=== PATIENT | female | born 1985 | race Two or more races ===

== ENCOUNTER 2016-07-15 10:45 | Observation (INO) | payer OTHER ==
[2016-07-15] MEDS ORDERED: GUAIFENESIN ER 600 MG TABLET.ER PO ONE (14:00)
[2016-07-15] MEDS ORDERED: ACETAMINOPHEN 500 MG TABLET PO ONE (14:30)
== END 2016-07-15 16:00 | disposition home or self-care (01) ==
LOC: 3 SO LND 10:45
PROVIDERS: ADMIT Obstetrics & Gynecology; ATTEND Obstetrics & Gynecology
DX: O26.899 Other specified pregnancy related conditions, unspecified trimester (principal); R10.9 Unspecified abdominal pain; R05 Cough; Z3A.00 Weeks of gestation of pregnancy not specified
CPT/HCPCS: G0378; G0379

== ENCOUNTER → 2019-08-07 | Outpatient (CLI) | payer MEDICAID ==
--- NOTE | 2019-08-07 16:56 | RAD ---
EXAM: Pelvic sonogram. HISTORY: Pain. TECHNIQUE: Transabdominal and transvaginal sonographic imaging of the pelvis performed. COMPARISON: None. FINDINGS: The uterus is retroverted and measures 8.2 x 6.1 x 5.3 cm. The endometrial stripe measures 12 abdomen thickness. There is a nabothian cyst within the cervix. The ovaries are normal in size and demonstrate normal blood flow. There is a 2.0 cm complex left ovarian cyst with internal debris or hemorrhage and peripheral blood flow. There is a small amount of left adnexal free fluid. There are multiple ovarian follicles. IMPRESSION: 1. 2.0 cm complex left ovarian cyst, possibly hemorrhagic in etiology. There is a small amount of adjacent left adnexal free fluid. 2. Retroverted uterus. 3. Nabothian cyst within the cervix. Electronically signed by: Carol Sarmiento MD (08/07/2019 4:53 PM) [facility] – [place]
== END | disposition home or self-care (01) ==
LOC: US 15:08
PROVIDERS: ATTEND Obstetrics & Gynecology
DX: N85.4 Malposition of uterus (principal); N83.292 Other ovarian cyst, left side
CPT/HCPCS: 76830; 76856

== ENCOUNTER 2021-04-26 09:13 | Emergency (ER) | payer MEDICAID ==
[~2021-04-26] VITALS: Ht 154.9 cm; Wt 53.1 kg
[2021-04-26 09:20] VITALS: BP 120/83
--- NOTE | 2021-04-26 09:39 | PHYS DOC ---
Past Medical History Past Surgical History: Tubal ligation Smoking Status: Never Smoker Alcohol Use: None General Adult EDM: Chief Complaint: PAIN ON URINATION HPI: HPI: Patient is a 35 year old female here with 1 day history of suprapubic discomfort and dysuria. She denies gross hematuria. She denies fevers, chills, nausea, vomiting, anorexia. She denies diarrhea constipation. She does report some mild left-sided low back pain. No flank pain. She denies any trauma or in jury. No lower extremity pain, numbness tingling or motor weakness. No incontinence reported. She reports that she feels like she has a urinary tract infection. LMP 3 days ago. She has had a previous tubal ligation, no other abdominal or pelvic surgeries reported. Review of Systems: Review of Systems: Constitutional: Denies fever or chills. [] HENT: Denies nasal congestion or sore throat. [] Respiratory: Denies cough or shortness of breath. [] Cardiovascular: Denies chest pain or edema. [] GI: Denies abdominal pain, nausea, vomiting, bloody stools or diarrhea. [] : She reports dysuria and suprapubic discomfort. Musculoskeletal: She reports mild left low back pain. Denies joint pain or swelling. Integument: Denies rash. [] Neurologic: Denies headache, focal weakness or sensory changes. [] Endocrine: Denies polyuria or polydipsia. [] ] Psychiatric: Denies depression or anxiety. [] Heart Score: C/O Chest Pain: No Risk Factors: Risk Factors: DM, Current or recent (<one month) smoker, HTN, HLP, family history of CAD, obesity. Risk Scores: Score 0 - 3: 2.5% MACE over next 6 weeks - Discharge Home Score 4 - 6: 20.3% MACE over next 6 weeks - Admit for Clinical Observation Score 7 - 10: 72.7% MACE over next 6 weeks - Early Invasive Strategies Allergies: Allergies: Allergies Coded Allergies Type Severity Reaction Last Updated Verified No Known Drug Allergies 04/26/21 No Physical Exam: PE: Constitutional: Well developed, well nourished, no acute distress, non-toxic appearance. [] HENT: Normocephalic, atraumatic Eyes: Sclera are clear and anicteric. Neck: Trachea is midline. Cardiovascular: Regular rate and rhythm, +2 radial and posterior tibial pulses bilaterally, well-perfused appearing, no edema. Lungs & Thorax: Bilateral breath sounds clear to auscultation, no rales, rhonchi or wheezes. Abdomen: Abdomen is soft, nondistended, no tenderness, no masses, no pulsatile masses. No organomegaly. No CVA tenderness. Normal bowel sounds. Skin: Warm, dry, no erythema, no rash. [] Back: No tenderness, no CVA tenderness. No midline tenderness or step-offs. Full range of motion of the spine noted. Extremities: No tenderness, no cyanosis, no clubbing, ROM intact, no edema. No calf tenderness. Neurologic: Alert and oriented X 3, normal motor function, gait is steady. Speech is fluent. Psychologic: Affect normal, judgement normal, mood normal. [] Current Patient Data: Vital Signs: Vital Signs Date Time Temp Pulse Resp B/P (MAP) Pulse Ox O2 Delivery O2 Flow Rate FiO2 04/26/21 09:20 98.0 99 14 120/83 (95) 100 Room Air 98.0 EKG: EKG: [] Radiology/Procedures: Radiology/Procedures: [] Course & Med Decision Making: Course & Med Decision Making Pertinent Labs and Imaging studies reviewed. (See chart for details) I discussed the findings, differential diagnosis and plan of care with the patient. She is given a first dose of p.o. Pyridium as well as p.o. Macrobid here. I explained that her urine culture is pending, and she should be notified of any need to change antibiotics based on this. Findings are most consistent with acute cystitis. No current indication for further invasive exams, labs or imaging at this time. I discussed home care instructions. I told her to follow-up with her primary care physician to ensure resolution of infection. She is comfortable with the plan of care. Strict return precautions are given. Dragon Disclaimer: Yon Disclaimer: This electronic medical record was generated, in whole or in part, using a voice recognition dictation system. Departure Departure Impression: Primary Impression: Acute cystitis Qualified Codes: N30.01 - Acute cystitis with hematuria Disposition: HOME / SELF CARE / HOMELESS Condition: STABLE Referrals: ERICA SERRANO MD (PCP) Patient Instructions: Urinary Tract Infection Additional Instructions: Take the full course of antibiotics. Use the Pyridium for urinary pain, use only for 2 days and then stop. Make sure you take medications with food to avoid stomach upset. Return to the ER immediately for fever of 100.4 or higher, severe abdominal pain, uncontrolled vomiting, dehydration or any other concerns. Please follow-up with your primary care physician to ensure resolution of your infection. Your urine culture is pending, and if there is any need to change your antibiotics based on this culture, you should be notified of this. Scripts Phenazopyridine Hcl (PYRIDIUM) 200 Mg Tablet 1 TAB PO TID for urinary discomfort for 2 Days, #6 TAB 0 Refills Prov: AIMEE NAJERA DO 04/26/21 Nitrofurantoin Monohyd/M-Cryst (MACROBID 100 MG CAPSULE) 100 Mg Capsule 1 CAP PO BID for 7 Days, #14 CAP 0 Refills Prov: AIMEE NAJERA DO 04/26/21 AIMEE NAJERA DO Apr 26, 2021 09:39
[2021-04-26 09:40] LABS: BILIRUBIN,URINE SMALL (NEG); CLARITY,URINE CLEAR; COLOR,URINE AMBER; NITRITE,URINE POSITIVE (NEG); PH,URINE 5.5 (<5.0-8.0); PROTEIN,URINE NEGATIVE (NEG-TRACE)
[2021-04-26 09:50] LABS: BACTERIA,URINE MODERATE /HPF (0-FEW); WBC,URINE 20-40 /HPF (0-4)
[2021-04-26 09:56] LABS: U PREG PATIENT NEGATIVE (NEG)
[2021-04-26] MEDS ORDERED: NITROFURANTOIN MONOHYD/M-CRYST 100 MG CAPSULE. PO ONE (10:00)
[2021-04-26] MEDS ORDERED: NITR100C62 PO (10:00)
[2021-04-26] MEDS ORDERED: PHENAZOPYRIDINE 200 MG TABLET. PO ONE (10:00)
[2021-04-26] MEDS ORDERED: PHEN-318 PO (10:00)
== END 2021-04-26 10:14 | disposition home or self-care (01) ==
LOC: ER 09:13
DX: N30.01 Acute cystitis with hematuria (principal); Z98.51 Tubal ligation status
CPT/HCPCS: 81001; 81025; 87086; 99283

== ENCOUNTER → 2021-05-10 | Outpatient (CLI) | payer MEDICAID ==
[2021-04-26 09:20] VITALS: BP 120/83
[~2021-05-10] MED LIST: NITR100C62 PO; PHEN-318 PO
--- NOTE | 2021-05-10 12:10 | RAD ---
EXAMINATION: CT ABDOMEN W/O CONTRAST CLINICAL HISTORY: Right upper quadrant abdominal pain. History of tubal ligation TECHNIQUE: Imaging of the abdomen was performed without intravenous contrast using standard technique , scanning from just above the dome of the diaphragm to the iliac crests. Unenhanced imaging is limi pascual for the evaluation of some intra-abdominal and pelvic pathology. CT Dose Reduction Employed: One or more of the following individualized dose reduction techniques wer e utilized for this examination: 1. Automated exposure control 2. Adjustment of the mA and/or kV ac cording to patient size 3. Use of iterative reconstruction technique. COMPARISON: None FINDINGS: A few scattered micronodules in the right lung base, nonspecific. Nondistended gallbladder suboptimally evaluated. Liver, pancreas, spleen, adrenal glands, and kidneys unremarkable. Partially visualized small bowel and colon are unremarkable. Mild degenerative disc disease T11-12. IMPRESSION: No evidence of acute abdominal abnormality. Nondiagnostic evaluation of the nondistended gallbladder. Electronically signed by: Malcom May DO (05/10/2021 12:08 PM) [facility]
== END ==
LOC: CT 10:03
PROVIDERS: ATTEND Nurse Practitioner
DX: R91.8 Other nonspecific abnormal finding of lung field (principal); M51.34 Other intervertebral disc degeneration, thoracic region
CPT/HCPCS: 74150